=== PATIENT | male | born 1950 | race Caucasian/White ===

== ENCOUNTER 2016-12-07 20:52 | Inpatient (IN) | payer MEDICARE, OTHER ==
[2016-12-07] MEDS ORDERED: MORPHINE SULFATE 4 MG/ML SYRINGE IV STA (21:23)
[2016-12-07] MEDS ORDERED: SODIUM CHLORIDE 0.9% 1,000 ML IV STA (21:23)
--- NOTE | 2016-12-07 21:27 | ED ---
General Adult HPI - General Chief complaint: Abdominal Pain Stated complaint: Back Pain Time Seen by Provider: 12/07/16 21:13 Source: patient, RN notes reviewed Mode of arrival: ambulatory Limitations: no limitations - History of Present Illness Initial comments: Patient is a 66-year-old male presents emergency room for evaluation. Patient states he's been having mid thoracic back pain for the past 3 days. Patient also states he's been having trouble urinating. Patient states the pain is not constant and comes in waves. Patient denies history of kidney stones. Patient denies flank pain. Patient denies blood in the urine. Patient also states that he's been short of breath. Patient denies chest pain. Patient denies history of cardiac issues. Patient does state he smokes about 10 cigarettes per day. Patient denies alcohol use. Patient does state he smokes marijuana every once in a while. Patient denies abdominal pain. Patient denies nausea or vomiting. Patient denies pain or burning while urinating. Patient's caregiver states that patient has not been to a primary care provider in a very long time and thought he should be evaluated due to his symptoms. - Related Data Home Medications Medication Instructions Recorded Confirmed FLUoxetine HCL [PROzac] 40 mg PO DAILY 12/07/16 12/07/16 fluPHENAZine DECANOATE [Prolixin 50 mg IM [id number] 12/07/16 12/07/16 Decanoate] Allergies Allergy/AdvReac Type Severity Reaction Status Date / Time No Known Allergies Allergy Verified 12/07/16 21:11 Review of Systems ROS Statement: Those systems with pertinent positive or pertinent negative responses have been documented in the HPI. ROS Other: All systems not noted in ROS Statement are negative. Past Medical History Past Medical History: Cancer Additional Past Medical History / Comment(s): lactose intolerant, melanoma History of Any Multi-Drug Resistant Organisms: None Reported Past Surgical History: Appendectomy, Cholecystectomy Additional Past Surgical History / Comment(s): skin CA removed Past Psychological History: Schizophrenia Smoking Status: Current every day smoker Past Alcohol Use History: None Reported Past Drug Use History: Marijuana - Past Family History Father Family Medical History: No Reported History General Exam - General Exam Comments Initial Comments: Laying in exam room, no acute distress. Limitations: no limitations General appearance: alert, in no apparent distress Head exam: Present: atraumatic, normocephalic, normal inspection Eye exam: Present: normal appearance ENT exam: Present: normal exam Neck exam: Present: normal inspection Respiratory exam: Present: normal lung sounds bilaterally. Absent: respiratory distress Cardiovascular Exam: Present: regular rate, normal rhythm, normal heart sounds GI/Abdominal exam: Present: soft, normal bowel sounds. Absent: distended, tenderness, guarding, rebound, rigid Extremities exam: Present: normal inspection, full ROM, normal capillary refill. Absent: tenderness Back exam: Present: normal inspection, full ROM. Absent: CVA tenderness (R), CVA tenderness (L), paraspinal tenderness, vertebral tenderness Neurological exam: Present: alert, oriented X3 Psychiatric exam: Present: normal affect Skin exam: Present: warm, dry, intact, normal color. Absent: rash Course Vital Signs 12/07/16 12/08/16 12/08/16 21:01 01:32 02:19 Temperature 97.1 F L 97.8 F Pulse Rate 88 69 72 Respiratory 18 16 20 Rate Blood Pressure 128/72 117/59 143/83 O2 Sat by Pulse 97 93 L 97 Oximetry Medical Decision Making - Medical Decision Making patient is a 66-year-old male presents to the emergency room for evaluation of mid thoracic back pain. Pain is not reproducible on palpation. D-dimer elevated. CTA chest: Large left mediastinal/hilar mass suspicious for malignancy. It markedly narrows the left main pulmonary artery. There is lack of enhancement of the left lobe arteries which may be due to mass effect, but superimposed/concurrent pulmonary embolism these vessels cannot be ruled out. Patient will be admitted for further evaluation of lung mass. Consult with pulmonology. Patient will be started on Lovenox in case patient does in fact have a PE. - Lab Data Result diagrams: 12/07/16 22:25 12/07/16 22:25 Lab Results 12/07/16 12/07/16 12/07/16 Range/Units 22:25 22:25 22:25 WBC 13.2 H (3.8-10.6) k/uL RBC 4.11 L (4.30-5.90) m/uL Hgb 12.3 L (13.0-17.5) gm/dL Hct 36.4 L (39.0-53.0) % MCV 88.5 (80.0-100.0) fL MCH 30.0 (25.0-35.0) pg MCHC 33.9 (31.0-37.0) g/dL RDW 13.3 (11.5-15.5) % Plt Count 414 (150-450) k/uL Neutrophils % 86 % Lymphocytes % 6 % Monocytes % 6 % Eosinophils % 0 % Basophils % 0 % Neutrophils # 11.3 H (1.3-7.7) k/uL Lymphocytes # 0.8 L (1.0-4.8) k/uL Monocytes # 0.8 (0-1.0) k/uL Eosinophils # 0.0 (0-0.7) k/uL Basophils # 0.0 (0-0.2) k/uL PT 10.2 (9.0-12.0) sec INR 1.0 (<1.2) APTT 25.2 (22.0-30.0) sec D-Dimer 0.90 H (<0.60) mg/L FEU Sodium 121 L (137-145) mmol/L Potassium 4.6 (3.5-5.1) mmol/L Chloride 89 L (98-107) mmol/L Carbon Dioxide 23 (22-30) mmol/L Anion Gap 9 mmol/L BUN 12 (9-20) mg/dL Creatinine 0.70 (0.66-1.25) mg/dL Est GFR (MDRD) Af Amer >60 (>60 ml/min/1.73 sqM) Est GFR (MDRD) Non-Af >60 (>60 ml/min/1.73 sqM) Glucose 111 H (74-99) mg/dL Calcium 9.0 (8.4-10.2) mg/dL Magnesium 2.0 (1.6-2.3) mg/dL Total Bilirubin 0.4 (0.2-1.3) mg/dL AST 15 L (17-59) U/L ALT 30 (21-72) U/L Alkaline Phosphatase 92 (38-126) U/L Total Creatine Kinase (55-170) U/L CK-MB (CK-2) (0.0-2.4) ng/mL CK-MB (CK-2) Rel Index Troponin I (0.000-0.034) ng/mL NT-Pro-B Natriuret Pep pg/mL Total Protein 5.9 L (6.3-8.2) g/dL Albumin 3.5 (3.5-5.0) g/dL Amylase 39 (30-110) U/L Lipase 58 (23-300) U/L Urine Color Urine Appearance (Clear) Urine pH (5.0-8.0) Ur Specific [place] (1.001-1.035) Urine Protein (Negative) Urine Glucose (UA) (Negative) Urine Ketones (Negative) Urine Blood (Negative) Urine Nitrite (Negative) Urine Bilirubin (Negative) Urine Urobilinogen (<2.0) mg/dL Ur Leukocyte Esterase (Negative) 12/07/16 12/07/16 12/07/16 Range/Units 22:25 22:25 23:44 WBC (3.8-10.6) k/uL RBC (4.30-5.90) m/uL Hgb (13.0-17.5) gm/dL Hct (39.0-53.0) % MCV (80.0-100.0) fL MCH (25.0-35.0) pg MCHC (31.0-37.0) g/dL RDW (11.5-15.5) % Plt Count (150-450) k/uL Neutrophils % % Lymphocytes % % Monocytes % % Eosinophils % % Basophils % % Neutrophils # (1.3-7.7) k/uL Lymphocytes # (1.0-4.8) k/uL Monocytes # (0-1.0) k/uL Eosinophils # (0-0.7) k/uL Basophils # (0-0.2) k/uL PT (9.0-12.0) sec INR (<1.2) APTT (22.0-30.0) sec D-Dimer (<0.60) mg/L FEU Sodium (137-145) mmol/L Potassium (3.5-5.1) mmol/L Chloride (98-107) mmol/L Carbon Dioxide (22-30) mmol/L Anion Gap mmol/L BUN (9-20) mg/dL Creatinine (0.66-1.25) mg/dL Est GFR (MDRD) Af Amer (>60 ml/min/1.73 sqM) Est GFR (MDRD) Non-Af (>60 ml/min/1.73 sqM) Glucose (74-99) mg/dL Calcium (8.4-10.2) mg/dL Magnesium (1.6-2.3) mg/dL Total Bilirubin (0.2-1.3) mg/dL AST (17-59) U/L ALT (21-72) U/L Alkaline Phosphatase (38-126) U/L Total Creatine Kinase 101 (55-170) U/L CK-MB (CK-2) 1.6 (0.0-2.4) ng/mL CK-MB (CK-2) Rel Index 1.6 Troponin I <0.012 (0.000-0.034) ng/mL NT-Pro-B Natriuret Pep 90 pg/mL Total Protein (6.3-8.2) g/dL Albumin (3.5-5.0) g/dL Amylase (30-110) U/L Lipase (23-300) U/L Urine Color Yellow Urine Appearance Clear (Clear) Urine pH 7.0 (5.0-8.0) Ur Specific [place] 1.050 H (1.001-1.035) Urine Protein Trace H (Negative) Urine Glucose (UA) Negative (Negative) Urine Ketones 2+ H (Negative) Urine Blood Negative (Negative) Urine Nitrite Negative (Negative) Urine Bilirubin Negative (Negative) Urine Urobilinogen <2.0 (<2.0) mg/dL Ur Leukocyte Esterase Negative (Negative) - Radiology Data Radiology results: report reviewed, image reviewed Disposition Clinical Impression: Lung mass Disposition: ADMITTED IP TO THIS [facility] Condition: Stable Decision Date: 12/08/16
--- NOTE | 2016-12-07 22:37 | XR ---
Exam: XR CXR 2 VIEWS History: Chest pain. Comparison: None provided. Technique: Frontal and lateral views. Findings: No focal consolidation or significant effusion. The heart shadow is normal in transverse dimension. There is suggestion of increased prominence/density in the left suprahilar region medially. This is nonspecific. It could be due to an ectatic contour of the aorta. Underlying lymphadenopathy is not entirely ruled out. Comparison with prior examination, if available, would be useful. Otherwise, may consider contrast enhanced follow-up CT chest. Impression: Questionable prominence of the left suprahilar region as discussed above.
[2016-12-07 22:40] LABS: Basophils % (A) 0 %; CH 30.9; Eosinophils % (A) 0 %; HCT 36.4 % (39.0-53.0); HDW 2.19; HGB 12.3 gm/dL (13.0-17.5); Luc # (Auto) 0.19; Luc % (Auto) 1; Lymphocytes # (A) 0.8 k/uL (1.0-4.8); Lymphocytes % (A) 6 %; MCHC 33.9 g/dL (31.0-37.0); MCV 88.5 fL (80.0-100.0); Mean Platelet Volume 6.6; Monocytes # (A) 0.8 k/uL (0-1.0); Monocytes % (A) 6 %; Neutrophils # (A) 11.3 k/uL (1.3-7.7); Neutrophils % (A) 86 %; RBC 4.11 m/uL (4.30-5.90); RDW 13.3 % (11.5-15.5); WBC 13.2 k/uL (3.8-10.6); WBC (Perox) 13.54
[2016-12-07 22:47] LABS: ALT 30 U/L (21-72); AST 15 U/L (17-59); Alkaline Phosphatase 92 U/L (38-126); Amylase 39 U/L (30-110); Anion Gap 9 mmol/L; Blood Urea Nitrogen 12 mg/dL (9-20); Carbon Dioxide 23 mmol/L (22-30); Chloride 89 mmol/L (98-107); Glucose 111 mg/dL (74-99); Non-African American GFR(MDRD) >60 (>60 ml/min/1.73 sqM); Potassium 4.6 mmol/L (3.5-5.1); Sodium 121 mmol/L (137-145); Total Bilirubin 0.4 mg/dL (0.2-1.3); Total Protein 5.9 g/dL (6.3-8.2)
[2016-12-07 22:53] LABS: Partial Thromboplastin Time 25.2 sec (22.0-30.0)
[2016-12-07 22:55] LABS: Prothrombin Time 10.2 sec (9.0-12.0)
[2016-12-07 22:56] LABS: Creatine Kinase 101 U/L (55-170)
[2016-12-07] MEDS ORDERED: RX INFO: IV CONTRAST WAS GIVEN 1 EACH MISC MISCELLANE PRN (23:02)
[2016-12-07] MEDS ORDERED: HYDROmorphone 1 MG/ML 1 ML SYRINGE IVP STA (23:06)
[2016-12-07 23:09] LABS: Creatine Kinase MB 1.6 ng/mL (0.0-2.4); Troponin I <0.012 ng/mL (0.000-0.034)
[2016-12-08 00:03] LABS: Appearance,Urine Clear (Clear); Bilirubin,Urine Negative (Negative); Glucose,Urine (UA) Negative (Negative); Ketones,Urine 2+ (Negative); Leukocyte Esterase,Urine Negative (Negative); Nitrite,Urine Negative (Negative); Protein,Urine Trace (Negative); UA Billing (MACRO vs. MICRO) CHEM; Urobilinogen,Urine <2.0 mg/dL (<2.0)
[2016-12-08] MEDS ORDERED: HYDROmorphone 1 MG/ML 1 ML SYRINGE IVP STA (00:58)
[2016-12-08] MEDS ORDERED: DIAZEPAM 5 MG/ML 2 ML SYRINGE IVP STA (00:59)
[2016-12-08] MEDS ORDERED: SODIUM CHLORIDE 0.9% 1,000 ML IV ONE (00:59)
--- NOTE | 2016-12-08 01:11 | CT ---
Exam: CTA CHEST With Contrast History: Chest pain. Back pain. History of melanoma. Rule out PE. Comparison: None provided. Technique: Continuous axial images of the chest were obtained per CTA protocol. Coronal and sagittal reformatting was provided. MIPs were submitted. Findings: There is a mediastinal mass in the left hilar region. Exact measurements are difficult given the irregular contour. It is approximately 5.1 cm x 8.0 cm x 7.2 cm. This mass engulfs and markedly narrows the left main pulmonary artery. While there is adequate enhancement/opacification of the left lower lobe vasculature, there is lack of opacification of the vast majority of the left upper lobe vessels. This may be secondary to the substantial mass effect, but superimposed/concurrent pulmonary emboli cannot be ruled out. There is right hilar lymphadenopathy. There are irregular parenchymal opacities adjacent to the superior border of this left hilar mass, likely representing satellite lesions. Additional groundglass opacities are seen at the periphery of the left upper lobe which could represent malignancy or pneumonia. Potentially, could be foci of scarring. Severe emphysematous changes are seen, particularly in the upper lobes. No pleural effusion. No acute aortic abnormality. There is prominent thickening of the left adrenal gland, incompletely imaged. This is suspicious for metastatic disease. There is approximate 20% loss of height of T6 anteriorly. A curvilinear sclerosis is seen extending from the anterior to the posterior margin of the vertebral body. This is suspicious for a compression fracture of indeterminate age. If acuity is of high concern, consider MRI. Impression: 1. Large left mediastinal/hilar mass suspicious for malignancy (discussed in detail above, including likely metastatic disease). It markedly narrows the left main pulmonary artery. There is lack of enhancement of the left upper lobe arteries which may be due to mass effect, but superimposed/concurrent pulmonary emboli in these vessels cannot be ruled out. 2. Age-indeterminate compression fracture of T6. If acuity is of high concern, consider MRI. DLP = 375.00 mGycm One or more of the following dose reduction techniques were used: automated exposure control, adjustment of the mA and/or kV according to patient size, use of iterative reconstruction technique. [employer] 12/08/16 01:16 Call Doctor Regarding Other, called ROMAINE Casillas on 12/08 01: 15 (-04:00)
[2016-12-08] MEDS ORDERED: NALOXONE 0.4 MG/ML 1 ML VIAL IV PRN (01:25)
[2016-12-08] MEDS ORDERED: ONDANSETRON 4 MG/2 ML VIAL IVP PRN (01:25)
[2016-12-08] MEDS: SODIUM CHLORIDE 0.9% 1,000 ML IV SCH ×2 (02:15→15:06)
[2016-12-08] MEDS: HYDROmorphone 1 MG/ML 1 ML SYRINGE IV PRN ×7 (04:01→23:32)
[2016-12-08] MEDS: NICOTINE 21MG/24HR PATCH TRANSDERM SCH (07:47)
[2016-12-08] MEDS: ENOXAPARIN 80 MG/0.8 ML SYRINGE SQ SCH ×2 (07:47→20:10)
[2016-12-08] MEDS: FLUoxetine HCL 20 MG CAP PO SCH (10:18)
--- NOTE | 2016-12-08 10:57 | P.CNPUL ---
History of Present Illness Consult date: 12/08/16 Requesting physician: Shay Tolbert Reason for consult: lung mass Chief complaint: Shortness of Breath and back pain History of present illness: This is a 66-year-old male patient being seen examined and evaluated today on the fifth floor. This patient had been having mid thoracic back pain for the last 3-4 days as well as difficulty urinating. Patient underwent a chest x-ray in the emergency room which showed questionable prominence of the left suprahilar region medially and a CT of the chest was recommended. The patient did undergo a CT a of the chest with contrast which revealed an irregular mass measuring approximately 5.1 cm 8.0 cm 7.2 cm which is highly suspicious for malignancy, markedly narrowing of the left main pulmonary artery, right mediastinal lymphadenopathy, prominent thickening of the left adrenal gland which was suspicious for metastatic disease, compression fracture of T6, superimposed/concurrent pulmonary emboli in the vessels cannot be excluded. Patient did have elevated d-dimer of 0.90 and was placed on Lovenox. The patient is a current every day smoker and states he's been smoking since he was a toddler at the age of 24 years old, states he smokes approximately 2 packs per day. Upon examination the patient's resting up in bed on room air, he states he does have occasional shortness of breath with cough and congestion. Patient states that he takes a deep breath he has excruciating pain in the middle of his back. Patient unable to have an adequate cough due to pain. Of note the patient has had melanoma. Review of Systems 14 point review of systems was completed and is negative unless noted above in the HPI. Past Medical History Past Medical History: Cancer Additional Past Medical History / Comment(s): lactose intolerant, melanoma History of Any Multi-Drug Resistant Organisms: None Reported Past Surgical History: Appendectomy, Cholecystectomy Additional Past Surgical History / Comment(s): skin CA removed Past Psychological History: Schizophrenia Smoking Status: Current every day smoker Past Alcohol Use History: None Reported Past Drug Use History: Marijuana - Past Family History Father Family Medical History: No Reported History Medications and Allergies Home Medications Medication Instructions Recorded Confirmed Type FLUoxetine HCL [PROzac] 40 mg PO DAILY 12/07/16 12/07/16 History fluPHENAZine DECANOATE [Prolixin 50 mg IM [id number] 12/07/16 12/07/16 History Decanoate] Allergies Allergy/AdvReac Type Severity Reaction Status Date / Time No Known Allergies Allergy Verified 12/07/16 21:11 Physical Exam Vitals: Vital Signs Temp Pulse Pulse Resp BP BP Pulse Ox 12/08/16 07:00 97.7 F 87 16 161/83 91 L 12/08/16 02:35 97.5 F L 78 16 150/67 92 L 12/08/16 02:19 72 20 143/83 97 12/08/16 01:32 97.8 F 69 16 117/59 93 L 12/08/16 01:25 92 L 12/07/16 21:01 97.1 F L 88 18 128/72 97 Intake and Output 12/07/16 12/08/16 12/08/16 22:59 06:59 14:59 Intake Total 150 Balance 150 Intake: IV 150 Sodium Chloride 0.9% 1, 150 000 ml @ 75 mls/hr IV . [id number] [facility] Rx#:[id number] Other: Weight 72.575 kg GENERAL EXAM: Alert, really uncomfortable due to back pain. HEAD: Normocephalic. EYES: Normal reaction of pupils, equal size. NOSE: Clear with pink turbinates. THROAT: No erythema or exudates. NECK: No masses, no JVD. CHEST: No chest wall deformity. BACK: Normal inspection, point tenderness noted to mid thoracic spine, any type of movement increases the patient's pain LUNGS: Coarse throughout, expiratory wheezing noted. bases diminished. CVS: S1 and S2 normal with no audible mumurs, regular rhythm. ABDOMEN: No hepatosplenomegaly, normal bowel sounds, no guarding or rigidity. EXTREMITIES: No edema noted, pedal pulses palpable. CENTRAL NERVOUS SYSTEM: No focal deficits, tone is normal in all 4 extremities. Results - Laboratory Findings CBC and BMP: 12/07/16 22:25 12/07/16 22:25 PT/INR, D-dimer PT 10.2 sec (9.0-12.0) 12/07/16 22:25 INR 1.0 (<1.2) 12/07/16 22:25 D-Dimer 0.90 mg/L FEU (<0.60) H 12/07/16 22:25 Abnormal lab findings: Abnormal Labs 12/07/16 12/07/16 12/07/16 22:25 22:25 22:25 WBC 13.2 H RBC 4.11 L Hgb 12.3 L Hct 36.4 L Neutrophils # 11.3 H Lymphocytes # 0.8 L D-Dimer 0.90 H Sodium 121 L Chloride 89 L Glucose 111 H AST 15 L Total Protein 5.9 L Ur Specific [place] Urine Protein Urine Ketones 12/07/16 23:44 WBC RBC Hgb Hct Neutrophils # Lymphocytes # D-Dimer Sodium Chloride Glucose AST Total Protein Ur Specific [place] 1.050 H Urine Protein Trace H Urine Ketones 2+ H - Diagnostic Findings Chest x-ray: report reviewed, image reviewed CT scan - chest: report reviewed, image reviewed Assessment and Plan Plan: Assessment Large left sided lung mass, PE cannot be ruled out at this time however it is felt less likely 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 This procedure has been discussed in length with the patient in regards to risk and benefits. All questions have been answered. Patient would like to go forth with the procedure. We will put the patient nothing by mouth after midnight and obtain consent. Medications have been reviewed and will be continued as ordered. Continue with pulmonary hygiene, coughing and deep breathing exercises , and supportive care. Supplemental oxygen to maintain oxygen saturations of 92 % or better. We will add nebulizer treatments to his current regime. GI and DVT prophylaxis. Patient should also have a PET scan done in the outpatient setting. Continue with consult as ordered and appreciate recommendations. We will continue to monitor labs/results and adjust treatment as necessary. Further recommendations pending. I performed an examination of the patient and discussed their management with the nurse practitioner. I have reviewed the nurse practitioner's note and agree with the documented findings and plan of care.
--- NOTE | 2016-12-08 15:42 | P.CONS ---
History of Present Illness - Reason for Consult Consult date: 12/08/16 New chest mass/Back pain Requesting physician: Prasanna García - Chief Complaint I have back pain - History of Present Illness Mr. Galvez is a 66-year-old male with a 150 pk/yr smoking history and a 4 month complaint of upper thoracic back pain. He describes worsening pain over this area for 3-4 days as well as difficulty urinating. Chest x-ray in the emergency room identified prominence of the left suprahilar region medially and a CT of the chest was recommended. CTA of the chest with contrast revealed an irregular mass measuring 5.1 cm 8.0 cm 7.2 cm highly suspicious for malignancy , markedly narrowing of the left main pulmonary artery, right mediastinal lymphadenopathy, prominent thickening of the left adrenal gland, and compression fracture of T6. Mr. Galvez denies weight loss, hemoptysis, worsening shortness of breathe, headaches, vision changes, or balance problems. He lives in a room above the garage adjacent to his negeorge and her . Review of Systems Constitutional: Reports fatigue, Reports poor appetite Eyes: denies blurred vision, denies pain Respiratory: Reports cough, Reports pain on inspiration Gastrointestinal: Denies abdominal pain, Denies diarrhea, Denies nausea, Denies vomiting Neurological: Denies numbness, Denies weakness Psychiatric: Reports depression Past Medical History Past Medical History: Cancer Additional Past Medical History / Comment(s): lactose intolerant, melanoma History of Any Multi-Drug Resistant Organisms: None Reported Past Surgical History: Appendectomy, Cholecystectomy Additional Past Surgical History / Comment(s): skin CA removed Past Psychological History: Schizophrenia Smoking Status: Current every day smoker Past Alcohol Use History: None Reported Past Drug Use History: Marijuana - Past Family History Father Family Medical History: No Reported History Medications and Allergies Home Medications Medication Instructions Recorded Confirmed Type FLUoxetine HCL [PROzac] 40 mg PO DAILY 12/07/16 12/07/16 History fluPHENAZine DECANOATE [Prolixin 50 mg IM [id number] 12/07/16 12/07/16 History Decanoate] Allergies Allergy/AdvReac Type Severity Reaction Status Date / Time No Known Allergies Allergy Verified 12/07/16 21:11 Physical Exam Vitals: Vital Signs Temp Pulse Pulse Resp BP BP Pulse Ox 12/08/16 15:00 97.5 F L 68 16 115/58 91 L 12/08/16 08:00 16 12/08/16 07:00 97.7 F 87 16 161/83 91 L 12/08/16 02:35 97.5 F L 78 16 150/67 92 L 12/08/16 02:19 72 20 143/83 97 12/08/16 01:32 97.8 F 69 16 117/59 93 L 12/08/16 01:25 92 L 12/07/16 21:01 97.1 F L 88 18 128/72 97 Intake and Output 12/08/16 12/08/16 12/08/16 06:59 14:59 22:59 Intake Total 150 500 Balance 150 500 Intake: IV 150 Sodium Chloride 0.9% 1, 150 000 ml @ 75 mls/hr IV . [id number] [facility] Rx#:[id number] Oral 500 Other: Voiding Method Toilet # Voids 1 - Constitutional General appearance: average body habitus, cooperative, disheveled - EENT Eyes: EOMI - Neck Neck: normal ROM - Respiratory Respiratory: bilateral: wheezing, prolonged expiration - Cardiovascular Rhythm: regular - Neurologic Neurologic: CNII-XII intact Results CBC & Chem 7: 12/07/16 22:25 12/07/16 22:25 Labs: Abnormal Lab Results - Last 24 Hours (Table) 12/07/16 12/07/16 12/07/16 Range/Units 22:25 22:25 22:25 WBC 13.2 H (3.8-10.6) k/uL RBC 4.11 L (4.30-5.90) m/uL Hgb 12.3 L (13.0-17.5) gm/dL Hct 36.4 L (39.0-53.0) % Neutrophils # 11.3 H (1.3-7.7) k/uL Lymphocytes # 0.8 L (1.0-4.8) k/uL D-Dimer 0.90 H (<0.60) mg/L FEU Sodium 121 L (137-145) mmol/L Chloride 89 L (98-107) mmol/L Glucose 111 H (74-99) mg/dL AST 15 L (17-59) U/L Total Protein 5.9 L (6.3-8.2) g/dL Ur Specific [place] (1.001-1.035) Urine Protein (Negative) Urine Ketones (Negative) 12/07/16 Range/Units 23:44 WBC (3.8-10.6) k/uL RBC (4.30-5.90) m/uL Hgb (13.0-17.5) gm/dL Hct (39.0-53.0) % Neutrophils # (1.3-7.7) k/uL Lymphocytes # (1.0-4.8) k/uL D-Dimer (<0.60) mg/L FEU Sodium (137-145) mmol/L Chloride (98-107) mmol/L Glucose (74-99) mg/dL AST (17-59) U/L Total Protein (6.3-8.2) g/dL Ur Specific [place] 1.050 H (1.001-1.035) Urine Protein Trace H (Negative) Urine Ketones 2+ H (Negative) CT scan - chest: image reviewed (Large central mass concerning for SCLC. Associated T6 compression fracture with no soft tissue component.) Assessment and Plan Plan: 66 year old male with an extensive smoking history and newly visualized large central mass and compression fracture of the T6 vertebral body. Patient scheduled for bronchoscopy and biopsy under the care of Dr. García 2016. We will await path. Imaging features are concerning for small cell lung cancer. It is difficult to assess at this time if the T6 compression fracture is associated with this new chest abnormality. After discharge Mr. Galvez will require MRI of the brain and PET/CT if pathology is diagnostic for malignancy. I have scheduled an outpatient appointment with Mr. Galvez on 12/13/16 @[facility]. [facility] [phone]
--- NOTE | 2016-12-08 16:03 | P.HPIM ---
History of Present Illness H&P Date: 12/08/16 Chief Complaint: Short of breath History of present complaint: This is a [address] Marie. Chronic stable medical conditions includes lactose intolerance, history of melanoma, schizophrenia. Patient presents with worsening 2 weeks history of lower back pain quite severe becoming more uncomfortable. Also patient got shortness of breath, cough, wheezing clear white sputum.. Patient is smoker. Appetite is gone down he is not sure if he lost weight. Computed tomography scan of the ER showed a lung mass with some compression of the pulmonary artery GEN.: Tired weight loss EYES: None HEENT: None NECK: None RESPIRATORY: As above CARDIOVASCULAR: None GASTROINTESTINAL: None GENITOURINARY: None MUSCULOSKELETAL: As above LYMPHATICS: None HEMATOLOGICAL: None PSYCHIATRY: None NEUROLOGICAL: No trouble with walking urine or bowel Past medical history: Lactose intolerance, melanoma, schizophrenia Past surgical history: Appendectomy, cholecystectomy, skin cancer Social history: This patient himself in an apartment, does marijuana occasionally, smokes about 2 packs a day Family history: Reviewed, noncontributory to presentation Home medications reviewed in the computer Physical examination: VITAL SIGNS: 97.5, 78, 16, 150/67, 91 % room air GENERAL: Average built, sitting up, uncomfortable. EYES: Pupils equal. Conjunctiva normal. HEENT: External appearance of nose and ears normal, oral cavity grossly normal. NECK: JVD not raised; masses not palpable. HEART: First and second heart sounds are normal; no edema. LUNGS: Respiratory rate increased, diminished breath sounds prolonged expiration , wheezing. ABDOMEN: Soft, nontender, liver spleen not palpable, no masses palpable. LYMPHATICS: No lymph nodes palpable in the axilla and neck. PSYCH: [Alert and oriented x3; mood and affect anxious appearing l. NEUROLOGICAL: Cranial nerves grossly intact; no facial asymmetry, power and sensation grossly intact. Investigations: White count 3.2, hemoglobin 12.3, sodium 121, potassium 4.6, CT chest angiogram: Shows left hilar mass groundglass opacities masses severe emphysematous changes questionable thickening of the left adrenal gland. T6 anteriorly compression fracture Assessment: -Extensive lung mass with some compression of the left pulmonary artery strongly suspicious of malignancy in a smoker -Severe emphysema in a current smoker -Chronic nicotine dependence patient active symptoms smoker -Severe hyponatremia suspect SIADH with lung cancer -Acute T6 compression fracture suspect metastatic disease -Suspect metastatic disease to the left adrenal gland -Chronic lactose intolerance -Schizophrenia Plan: Pulmonary was consulted. The plan to do a bronchoscopy with biopsy. Patient is put on nebulized bronchitis steroids. We'll begin a nicotine patch. We will order a heating pad. Home medications are resumed. We'll also consult oncology. Care was discussed with the patient Past Medical History Additional Past Medical History / Comment(s): lactose intolerant, melanoma History of Any Multi-Drug Resistant Organisms: None Reported Past Surgical History: Appendectomy, Cholecystectomy Additional Past Surgical History / Comment(s): skin CA removed Past Psychological History: Schizophrenia Smoking Status: Current every day smoker Past Alcohol Use History: None Reported Past Drug Use History: Marijuana - Past Family History Father Family Medical History: No Reported History Medications and Allergies Home Medications Medication Instructions Recorded Confirmed Type FLUoxetine HCL [PROzac] 40 mg PO DAILY 12/07/16 12/07/16 History fluPHENAZine DECANOATE [Prolixin 50 mg IM [id number] 12/07/16 12/07/16 History Decanoate] Allergies Allergy/AdvReac Type Severity Reaction Status Date / Time No Known Allergies Allergy Verified 12/07/16 21:11 Physical Exam Vitals: Results CBC & Chem 7: 12/07/16 22:25 12/07/16 22:25
[2016-12-08] MEDS: IPRATROPIUM-ALBUTEROL 3 ML NEB INHALATION SCH ×2 (17:00→21:22)
[2016-12-08] MEDS ORDERED: LIDOCAINE 1% 20 ML VIAL (10MG/ML) FOR IV START INTRADERMA PRN (21:18)
[2016-12-08] MEDS: BUDESONIDE 0.5 MG/2 ML NEBU INHALATION SCH (21:22)
[2016-12-08] MEDS: LACTATED RINGERS 1,000 ML IV SCH (23:19)
[2016-12-09] MEDS: HYDROmorphone 1 MG/ML 1 ML SYRINGE IV PRN ×4 (04:18→16:34)
[2016-12-09] MEDS: SODIUM CHLORIDE 0.9% 1,000 ML IV SCH ×2 (07:36→16:34)
[2016-12-09] MEDS: BUDESONIDE 0.5 MG/2 ML NEBU INHALATION SCH ×2 (08:16→19:30)
[2016-12-09] MEDS: IPRATROPIUM-ALBUTEROL 3 ML NEB INHALATION SCH ×3 (08:16→19:30)
[2016-12-09] MEDS ORDERED: GLYCOPYRROLATE 0.2 MG/ML 2 ML VIAL ONE (08:32)
[2016-12-09] MEDS ORDERED: MIDAZOLAM 2 MG/2 ML VIAL ONE (08:32)
[2016-12-09] MEDS ORDERED: LIDOCAINE 1% INJ 10MG/ML (20 ML MDV) ONE (08:32)
[2016-12-09] MEDS ORDERED: PROPOFOL 10 MG/ML 20 ML VIAL IV ONE (08:32)
[2016-12-09] MEDS ORDERED: fentaNYL (PF) 50 MCG/ML 2 ML AMP ONE (08:32)
[2016-12-09] MEDS ORDERED: IV FLUID CONTINUATION 1,000 ML IV ONE (08:32)
[2016-12-09 08:38] LABS: Basophils % (A) 0 %; CH 30.4; CHCM 34.1; Eosinophils % (A) 0 %; HCT 36.1 % (39.0-53.0); HDW 2.26; HGB 11.9 gm/dL (13.0-17.5); Luc # (Auto) 0.22; Luc % (Auto) 2; Lymphocytes # (A) 1.3 k/uL (1.0-4.8); Lymphocytes % (A) 13 %; MCH 29.5 pg (25.0-35.0); MCHC 32.9 g/dL (31.0-37.0); MCV 89.8 fL (80.0-100.0); Mean Platelet Volume 6.5; Monocytes # (A) 0.9 k/uL (0-1.0); Monocytes % (A) 9 %; Neutrophils # (A) 7.8 k/uL (1.3-7.7); Neutrophils % (A) 76 %; RBC 4.02 m/uL (4.30-5.90); RDW 13.2 % (11.5-15.5); WBC 10.2 k/uL (3.8-10.6); WBC (Perox) 10.96
[2016-12-09 08:47] LABS: Anion Gap 7 mmol/L; Blood Urea Nitrogen 7 mg/dL (9-20); Calcium 8.5 mg/dL (8.4-10.2); Carbon Dioxide 25 mmol/L (22-30); Chloride 94 mmol/L (98-107); Glucose 90 mg/dL (74-99); Non-African American GFR(MDRD) >60 (>60 ml/min/1.73 sqM); Potassium 4.4 mmol/L (3.5-5.1); Sodium 126 mmol/L (137-145)
[2016-12-09 08:56] LABS: Prothrombin Time 10.1 sec (9.0-12.0)
[2016-12-09] MEDS ORDERED: LIDOCAINE 2% INJ 20 MG/ML INTRATRACH ONE (09:00)
[2016-12-09] MEDS: FLUoxetine HCL 20 MG CAP PO SCH (09:44)
[2016-12-09] MEDS: NICOTINE 21MG/24HR PATCH TRANSDERM SCH (09:44)
--- NOTE | 2016-12-09 09:46 | XR ---
EXAMINATION TYPE: XR chest 1V portable DATE OF EXAM: 12/09/2016 COMPARISON: 12/07/2016 INDICATION: Left lower lobe biopsy. TECHNIQUE: Single frontal view of the chest is obtained. FINDINGS: The heart size is normal. The pulmonary vasculature is normal. A right basilar infiltrate is developing. Correlate for atelectasis or pneumonia. There is a history of left lower lobe biopsy. No pneumothorax is evident. IMPRESSION: 1. Right lower lobe atelectasis. 2. No left lung pneumothorax post biopsy.
--- NOTE | 2016-12-09 10:25 | FL ---
EXAMINATION TYPE: FL bronchoscopy DATE OF EXAM: 12/09/2016 COMPARISON: NONE HISTORY: Bronchoscopy, abnormal chest CT Fluoroscopy support supplied to the referring clinician. See dictated report from pulmonary, 1 minut e 33 seconds fluoroscopy time supplied, no intraoperative C-arm image submitted
--- NOTE | 2016-12-09 13:57 | P.PN ---
Progress Note - Text This is a 66-year-old male patient being seen examined and evaluated today on the fifth floor. This patient had been having mid thoracic back pain for the last 3-4 days as well as difficulty urinating. Patient underwent a chest x-ray in the emergency room which showed questionable prominence of the left suprahilar region medially and a CT of the chest was recommended. The patient did undergo a CT a of the chest with contrast which revealed an irregular mass measuring approximately 5.1 cm 8.0 cm 7.2 cm which is highly suspicious for malignancy, markedly narrowing of the left main pulmonary artery, right mediastinal lymphadenopathy, prominent thickening of the left adrenal gland which was suspicious for metastatic disease, compression fracture of T6, superimposed/concurrent pulmonary emboli in the vessels cannot be excluded. Patient did have elevated d-dimer of 0.90 and was placed on Lovenox. The patient is a current every day smoker and states he's been smoking since he was a toddler at the age of 24 years old, 14 point review of systems was completed and is negative unless noted above in the HPI. Past Medical History Past Medical History: Cancer Additional Past Medical History / Comment(s): lactose intolerant, melanoma History of Any Multi-Drug Resistant Organisms: None Reported Past Surgical History: Appendectomy, Cholecystectomy Additional Past Surgical History / Comment(s): skin CA removed Past Psychological History: Schizophrenia Smoking Status: Current every day smoker Past Alcohol Use History: None Reported Past Drug Use History: Marijuana - Past Family History Father Family Medical History: No Reported History Medications and Allergies Home Medications Medication Instructions Recorded Confirmed Type FLUoxetine HCL [PROzac] 40 mg PO DAILY 12/07/16 12/07/16 History fluPHENAZine DECANOATE [Prolixin 50 mg IM [id number] 12/07/16 12/07/16 History Decanoate] Allergies Allergy/AdvReac Type Severity Reaction Status Date / Time No Known Allergies Allergy Verified 12/07/16 21:11 Physical Exam Vitals: reviewed Vital Signs Temp Pulse Pulse Resp BP BP Pulse Ox 12/08/16 07:00 97.7 F 87 16 161/83 91 L 12/08/16 02:35 97.5 F L 78 16 150/67 92 L 12/08/16 02:19 72 20 143/83 97 12/08/16 01:32 97.8 F 69 16 117/59 93 L 12/08/16 01:25 92 L 12/07/16 21:01 97.1 F L 88 18 128/72 97 Intake and Output 12/07/16 12/08/16 12/08/16 22:59 06:59 14:59 Intake Total 150 Balance 150 Intake: IV 150 Sodium Chloride 0.9% 1, 150 000 ml @ 75 mls/hr IV . [id number] [facility] Rx#:[id number] Other: Weight 72.575 kg GENERAL EXAM: Alert, really uncomfortable due to back pain. HEAD: Normocephalic. EYES: Normal reaction of pupils, equal size. NOSE: Clear with pink turbinates. THROAT: No erythema or exudates. NECK: No masses, no JVD. CHEST: No chest wall deformity. BACK: Normal inspection, point tenderness noted to mid thoracic spine, any type of movement increases the patient's pain LUNGS: Coarse throughout, expiratory wheezing noted. bases diminished. CVS: S1 and S2 normal with no audible mumurs, regular rhythm. ABDOMEN: No hepatosplenomegaly, normal bowel sounds, no guarding or rigidity. EXTREMITIES: No edema noted, pedal pulses palpable. CENTRAL NERVOUS SYSTEM: No focal deficits, tone is normal in all 4 extremities. Results - Laboratory Findings CBC and BMP: 12/07/16 22:25 12/07/16 22:25 PT/INR, D-dimer PT 10.2 sec (9.0-12.0) 12/07/16 22:25 INR 1.0 (<1.2) 12/07/16 22:25 D-Dimer 0.90 mg/L FEU (<0.60) H 12/07/16 22:25 Abnormal lab findings: Abnormal Labs 12/07/16 12/07/16 12/07/16 22:25 22:25 22:25 WBC 13.2 H RBC 4.11 L Hgb 12.3 L Hct 36.4 L Neutrophils # 11.3 H Lymphocytes # 0.8 L D-Dimer 0.90 H Sodium 121 L Chloride 89 L Glucose 111 H AST 15 L Total Protein 5.9 L Ur Specific [place] Urine Protein Urine Ketones 12/07/16 23:44 WBC RBC Hgb Hct Neutrophils # Lymphocytes # D-Dimer Sodium Chloride Glucose AST Total Protein Ur Specific [place] 1.050 H Urine Protein Trace H Urine Ketones 2+ H - Diagnostic Findings Chest x-ray: report reviewed, image reviewed CT scan - chest: report reviewed, image reviewed Assessment and Plan Plan: Assessment Large left sided lung mass, PE cannot be ruled out at this time however it is felt less likely Acute exacerbation of COPD with extensive bullous lung disease Right mediastinal lymphadenopathy on CTA Compression fracture to T6 Prominence of the left adrenal gland, suspect mets History of melanoma Nicotine dependence Plan Patient should have a bronchoscopy under fluoroscopy with biopsies later on today This procedure has been discussed in length with the patient in regards to risk and benefits. All questions have been answered. Patient would like to go forth with the procedure. We will put the patient nothing by mouth after midnight and obtain consent. Medications have been reviewed and will be continued as ordered. Continue with pulmonary hygiene, coughing and deep breathing exercises, and supportive care. Supplemental oxygen to maintain oxygen saturations of 92% or better. We will add nebulizer treatments to his current regime. GI and DVT prophylaxis. Patient should also have a PET scan done in the outpatient setting. Continue with consult as ordered and appreciate recommendations. We will continue to monitor labs/results and adjust treatment as necessary. Further recommendations pending.
--- NOTE | 2016-12-09 14:03 | P.PCN ---
Date of Procedure: 12/09/16 Preoperative Diagnosis: left sided lung mass Postoperative Diagnosis: as above Procedure(s) Performed: bronchoscopy, bronchial biopsy, BAL, TBBX under fluroscopy Implants: Anesthesia: local Surgeon: Prasanna García Estimated Blood Loss (ml): 0 Condition: stable Disposition: floor Indications for Procedure: as above Operative Findings: narrowed left upper lobe bronchus Description of Procedure: FOB passed via right nares, vocal cords are normal , right side was yaw, left sided mucosal thickening noted galina JOCE bronchuswith near occlution bal, bx, tbbx performed tolerated well
[2016-12-09] MEDS ORDERED: RX INFO: IV CONTRAST WAS GIVEN 1 EACH MISC MISCELLANE PRN (16:37)
[2016-12-09] MEDS ORDERED: MAGNESIUM HYDROXIDE 2,400 MG/10 ML CUP PO PRN (16:43)
--- NOTE | 2016-12-09 17:06 | P.CONS ---
History of Present Illness - Reason for Consult Consult date: 12/09/16 lung mass Requesting physician: Valerie Whaley - Chief Complaint back pain - History of Present Illness Mr. Galvez is a very pleasant 66-year-old male with a history of schizophrenia who has guardian as well as his niece who provides him care in the home. Patient has not been to see a doctor in quite some years, he is not current on age-related cancer screenings per his request not to have certain testings. Patient was experiencing severe mid back pain and that is why he was brought to the emergency department. Patient had a CTA of the chest revealing a left hilar mass measuring 5.1 x 8 x 7.2 cm, compression of the left main pulmonary artery was noted as well as some right hilar adenopathy, could not rule out PE so, patient was started on Lovenox, pt is status post bronchoscopy biopsy, transbronchial biopsy with Dr. García, pathology pending. Per the patient and caregiver patient has been in his usual state of health with no acute changes noted in either his behaviors, appetite or weight. Patient denies sweats, cough, shortness of breath, abdominal pain, or problems swallowing, c/o lack of appetite and some mild nausea, he has not had a bowel movement in several days, he is ambulatory, no incontinence. Review of Systems All systems: negative Constitutional: Reports as per HPI Past Medical History Past Medical History: Cancer Additional Past Medical History / Comment(s): lactose intolerant, melanoma removal right chest and left shoulder 2010 History of Any Multi-Drug Resistant Organisms: None Reported Past Surgical History: Appendectomy, Cholecystectomy Additional Past Surgical History / Comment(s): skin CA removed Past Psychological History: Schizophrenia Smoking Status: Current every day smoker Past Alcohol Use History: None Reported Past Drug Use History: Marijuana - Past Family History Father Family Medical History: No Reported History Medications and Allergies Home Medications Medication Instructions Recorded Confirmed Type FLUoxetine HCL [PROzac] 40 mg PO DAILY 12/07/16 12/07/16 History fluPHENAZine DECANOATE [Prolixin 50 mg IM [id number] 12/07/16 12/07/16 History Decanoate] Allergies Allergy/AdvReac Type Severity Reaction Status Date / Time No Known Allergies Allergy Verified 12/07/16 21:11 Physical Exam Vitals: Vital Signs Temp Pulse Resp BP Pulse Ox 12/09/16 15:00 98 F 81 20 147/65 92 L 12/09/16 07:50 18 12/09/16 07:00 98 F 77 20 156/82 94 L 12/08/16 20:45 97.9 F 81 16 120/57 94 L Intake and Output 12/09/16 12/09/16 12/09/16 06:59 14:59 22:59 Intake Total 600 650 Balance 600 650 Intake: IV 600 650 Sodium Chloride 0.9% 1, 600 600 000 ml @ 75 mls/hr IV . [id number] [facility] Rx#:[id number] Other: Voiding Method Toilet Toilet Toilet - Constitutional General appearance: cooperative, no acute distress, thin - EENT Eyes: anicteric sclerae, PERRLA, poor dentition, normal appearance ENT: hearing grossly normal, normal oropharynx - Neck Neck: no lymphadenopathy - Respiratory Respiratory: bilateral: wheezing (expiratory ) - Cardiovascular Rhythm: regular Heart sounds: normal: S1, S2 Abnormal Heart Sounds: no systolic murmur, no diastolic murmur, no rub, no S3 Gallop, no S4 Gallop, no click, no other leg Peripheral Edema: bilateral: None - Gastrointestinal General gastrointestinal: no absent bowel sounds, no decreased bowel sounds, no distended, no hepatomegaly, no hyperactive bowel sounds, normal bowel sounds, no organomegaly, no rigid, no scaphoid, soft, no splenomegaly, no tenderness, no umbilical hernia, no ventral hernia - Integumentary Integumentary: normal, pale - Neurologic Neurologic: CNII-XII intact - Musculoskeletal Musculoskeletal: strength equal bilaterally - Psychiatric niece is at bedside Psychiatric: A&O x's 3, appropriate affect Results CBC & Chem 7: 12/09/16 07:44 12/09/16 07:44 Labs: Abnormal Lab Results - Last 24 Hours (Table) 12/09/16 12/09/16 Range/Units 07:44 07:44 RBC 4.02 L (4.30-5.90) m/uL Hgb 11.9 L (13.0-17.5) gm/dL Hct 36.1 L (39.0-53.0) % Neutrophils # 7.8 H (1.3-7.7) k/uL Sodium 126 L (137-145) mmol/L Chloride 94 L (98-107) mmol/L BUN 7 L (9-20) mg/dL Creatinine 0.63 L (0.66-1.25) mg/dL CT scan - chest: report reviewed Assessment and Plan (1) Lung mass Narrative/Plan: Presentation is concerning for malignancy, was discussed with the patient as well as his niece who was at the bedside. Patient's guardian was also informed via telephone of our discussion. Patient is status post bronchoscopy and biopsy with transbronchial biopsy by Dr. García, pathology is pending. CT of the head has been ordered to evaluate for possible metastatic disease. PET scan will be planned in the outpatient setting for next Monday for initial staging. Patient will follow up with Dr. Sainz the following week for results and plan of care. Caregivers aware of plan of care. Status: Acute (2) Back pain of thoracolumbar region Narrative/Plan: On computed tomography scan there is discussion of a T6 possible compression fracture, could possibly be an area of malignancy. Patient currently is not experiencing any neurological symptoms. Patient's pain medications are being adjusted for pain control. Status: Acute (3) Nausea Narrative/Plan: Could possibly be related pain, pain medications are being adjusted. Patient has been provided with some nutritional supplements. Status: Acute Plan: Once patient's pain and nausea are controlled patient is okay from a hematology/ oncology standpoint to be discharged home. Patient's caregivers are aware of the plan of care.
--- NOTE | 2016-12-09 19:12 | CT ---
EXAMINATION TYPE: CT brain w con DATE OF EXAM: 12/09/2016 COMPARISON: NONE HISTORY: History of skin cancer per patient CT DLP: 1236 mGycm Automated exposure control for dose reduction was used. CONTRAST: CT scan of the head is performed with IV Contrast, patient injected with 100 mL of Omnipaque 300. FINDINGS: Ventricles have normal size. There is no mass effect nor midline shift. There is no sign of intracran ial hemorrhage. There is no pathologic enhancement. The calvarium is intact. There is minimal mucosal thickening in the ethmoid air cells. IMPRESSION: Negative CT scan of the brain. No evidence of metastatic disease. Minimal ethmoid sinusitis.
[2016-12-09] MEDS: HYDROmorphone 1 MG/ML 1 ML SYRINGE IM PRN ×2 (19:44→22:37)
[2016-12-09] MEDS: DOCUSATE 100 MG CAP PO SCH (19:45)
[2016-12-09] MEDS: ENOXAPARIN 80 MG/0.8 ML SYRINGE SQ SCH (19:47)
[2016-12-09] MEDS: LACTATED RINGERS 1,000 ML IV SCH (19:48)
--- NOTE | 2016-12-09 21:27 | P.PN ---
<Valerie Whaley - Last Filed: 12/09/16 21:01> Progress Note - Text DATE OF SERVICE: 12/09/2016 PRESENTING COMPLAINT: Shortness of breath INTERVAL HISTORY: 66-year-old patient who had shortness of breath cough wheezing with sputum production. Computed tomography scan of the lung showed a mass with some compression of pulmonary artery. 12/09/2016: Patient lying in bed appears comfortable. Returned from his bronchoscopy, diet initiated. States his back pain is better today, breathing is okay. Ambulatory in the room. Appetite low. REVIEW OF SYSTEMS: Done for constitutional ,cardiovascular, GI, pulmonary with relevant findings as above. CURRENT MEDICATIONS Pulmicort, Lovenox, Prozac, Dilaudid, nicotine patch. PHYSICAL EXAM VITAL SIGNS: Temperature 98.0, pulse 81, respiratory rate 20, blood pressure 147 or 65, oxygen saturation 92% on 2 L GENERAL APPEARANCE: Lying in bed, appears comfortable EYES: Pupils equal. Conjunctiva normal. NECK: JVD not raised. Mass not palpable. RESPIRATORY: Respiratory effort normal. Lungs coarse breath sounds and expiratory wheezing noted. CARDIOVASCULAR: First and second sounds normal. No edema. ABDOMEN: Soft. Liver and spleen not palpable. No tenderness. No mass palpable. PSYCHIATRY: Alert and oriented x3. Mood and affect calm and cooperative. INVESTIGATIONS: Hemoglobin 11.9, INR 1.0, sodium 126, potassium 4.4, BUN 7, creatinine 0.63 Bronchial washings cultures in process CHEST x-ray: Right lower lobe atelectasis, no left lung pneumothorax postbiopsy. ASSESSMENT: -Extensive lung mass with some compression of the left pulmonary artery strongly suspicious of malignancy in a smoker. -Severe emphysema in a current smoker -Chronic nicotine dependence patient active symptoms smoker -Severe hyponatremia suspect SIADH with lung cancer, improving -Acute T6 compression fracture suspect metastatic disease -Suspect metastatic disease to the left adrenal gland -Chronic lactose intolerance -Schizophrenia PLAN: Continue nebulized bronchodilators and steroids. Await culture results. Oncology on consult and CT scan PET scan are ordered, with a PET scan to be done on next Monday for initial staging. We'll continue pain medications, heating pad to control pain related to compression fracture. Continue IV fluids to help with hyponatremia. We'll continue to follow closely. FLASH DEVELOPER statement: Patient was seen and examined by nurse practitioner Valerie Whaley and all elements of the case discussed with attending Dr. Tolbert <Shay Tolbert - Last Filed: 12/10/16 13:52> Progress Note - Text Attending note. Date of service-12/09/2016 This patient was seen and examined by me . I reviewed the note of my nurse practitioner, Ms. Whaley. Discussed with her, additional findings as below. Patient underwent bronchoscopy and biopsy today. Small amount of cough with the danger of bloody sputum. Still having back pain. On examination: Uncomfortable. Lungs-increased rate, decreased breath sounds and wheezing Investigations: Computed tomography scan of the brain negative. White count 10.2, sodium 126 Assessment and plan: Lung mass followed by bronchoscopy and biopsy Severe emphysema, slow to respond Hyponatremia likely SIADH Await Pap smear results. Continue with bronchodilators. Pain control. Fluid restriction to continue.
[2016-12-09 21:51] VITALS: RESP 16
[2016-12-10] MEDS: HYDROmorphone 1 MG/ML 1 ML SYRINGE IM PRN ×5 (02:45→21:55)
[2016-12-10] MEDS: SODIUM CHLORIDE 0.9% 1,000 ML IV SCH ×2 (04:50→23:46)
[2016-12-10 06:44] LABS: Basophils % (A) 0 %; CH 30.5; CHCM 34.3; Eosinophils # (A) 0.1 k/uL (0-0.7); Eosinophils % (A) 0 %; HCT 35.2 % (39.0-53.0); HDW 2.26; HGB 11.7 gm/dL (13.0-17.5); Luc # (Auto) 0.27; Luc % (Auto) 2; Lymphocytes # (A) 1.3 k/uL (1.0-4.8); Lymphocytes % (A) 10 %; MCH 29.7 pg (25.0-35.0); MCHC 33.2 g/dL (31.0-37.0); MCV 89.4 fL (80.0-100.0); Mean Platelet Volume 6.5; Monocytes # (A) 1.1 k/uL (0-1.0); Monocytes % (A) 9 %; Neutrophils # (A) 9.8 k/uL (1.3-7.7); Neutrophils % (A) 78 %; RBC 3.94 m/uL (4.30-5.90); RDW 13.2 % (11.5-15.5); WBC 12.5 k/uL (3.8-10.6); WBC (Perox) 12.89
[2016-12-10 06:59] LABS: Anion Gap 8 mmol/L; Blood Urea Nitrogen 6 mg/dL (9-20); Calcium 8.8 mg/dL (8.4-10.2); Carbon Dioxide 24 mmol/L (22-30); Chloride 94 mmol/L (98-107); Glucose 98 mg/dL (74-99); Non-African American GFR(MDRD) >60 (>60 ml/min/1.73 sqM); Potassium 4.1 mmol/L (3.5-5.1); Sodium 126 mmol/L (137-145)
[2016-12-10] MEDS: BUDESONIDE 0.5 MG/2 ML NEBU INHALATION SCH ×2 (08:09→20:38)
[2016-12-10] MEDS: IPRATROPIUM-ALBUTEROL 3 ML NEB INHALATION SCH ×2 (08:09→20:38)
[2016-12-10] MEDS: DOCUSATE 100 MG CAP PO SCH ×2 (09:32→19:53)
[2016-12-10] MEDS: FLUoxetine HCL 20 MG CAP PO SCH (09:32)
[2016-12-10] MEDS: NICOTINE 21MG/24HR PATCH TRANSDERM SCH (09:33)
[2016-12-10] MEDS: ENOXAPARIN 80 MG/0.8 ML SYRINGE SQ SCH ×2 (09:33→19:53)
[2016-12-10] MEDS: DICLOFENAC SODIUM GEL 100 GM TUBE TOPICAL SCH ×3 (15:05→19:53)
[2016-12-10] MEDS: SODIUM CHLORIDE TAB 1 GM TAB PO SCH ×3 (15:05→21:56)
[2016-12-10] MEDS: FUROSEMIDE 20 MG TAB PO SCH (15:05)
[2016-12-10 16:44] VITALS: TEMP 98.1
--- NOTE | 2016-12-10 17:11 | P.PN ---
Progress Note - Text DATE OF SERVICE: 12/10/2016 PRESENTING COMPLAINT: Shortness of breath INTERVAL HISTORY: 66-year-old patient who had shortness of breath cough wheezing with sputum production. Computed tomography scan of the lung showed a mass with some compression of pulmonary artery. 12/09/2016: Patient lying in bed appears comfortable. Returned from his bronchoscopy, diet initiated. States his back pain is better today, breathing is okay. Ambulatory in the room. Appetite low. 12/10/2016: Patient lying in bed appears comfortable, states he's been up walking around quite a bit on the unit, feels good. Appetite is good, able to eat most of his lunch. Last BM was today. REVIEW OF SYSTEMS: Done for constitutional ,cardiovascular, GI, pulmonary with relevant findings as above. CURRENT MEDICATIONS Pulmicort, Lovenox, Prozac, Dilaudid, nicotine patch. Diclofenac gel PHYSICAL EXAM VITAL SIGNS: Temperature 98.5, pulse 76, respiratory rate 16, blood pressure 135/65, oxygen saturation 92% on room air GENERAL APPEARANCE: Lying in bed, appears comfortable EYES: Pupils equal. Conjunctiva normal. NECK: JVD not raised. Mass not palpable. RESPIRATORY: Respiratory effort normal. Lungs coarse breath sounds and expiratory wheezing noted. CARDIOVASCULAR: First and second sounds normal. No edema. ABDOMEN: Soft. Liver and spleen not palpable. No tenderness. No mass palpable. PSYCHIATRY: Alert and oriented x3. Mood and affect calm and cooperative. INVESTIGATIONS: White blood cell count 12.5, hemoglobin 11.7, sodium 126, potassium 4.1, BUN 6, creatinine 0.60. Bronchial washings cultures in process Brain CT: Negative for metastatic disease. ASSESSMENT: -Extensive lung mass with some compression of the left pulmonary artery strongly suspicious of malignancy in a smoker status post bronchoscopy with biopsy. -Severe emphysema in a current smoker, slow to respond -Chronic nicotine dependence patient active symptoms smoker -Severe hyponatremia likely SIADH with lung cancer, slow to respond -Acute T6 compression fracture suspect metastatic disease -Suspect metastatic disease to the left adrenal gland -Chronic lactose intolerance -Schizophrenia PLAN: Continue nebulized bronchodilators and steroids. Await culture results. Oncology on consult and CT scan PET scan are ordered, with a PET scan to be done on next Monday for initial staging. We'll continue pain medications, heating pad to control pain related to compression fracture. Continue IV fluids /fluid restriction to help with hyponatremia. We'll continue to follow closely. BODY MECHANIC statement: Patient was seen and examined by nurse practitioner Valerie Whaley and all elements of the case discussed with attending Dr. Tolbert
--- NOTE | 2016-12-10 20:39 | PN ---
This is a 66-year-old gentleman who underwent biopsy by Dr. García yesterday. The patient on CT scan was apparently found to have a mass and a ( ) mass measuring approximately 5.1 x 8 x 7.2 cm suspicious for malignancy. The mass was in the left suprahilar region. The patient is doing well today. No major complaints. He can follow-up with Dr. García after discharge. He was admitted to Dr. Sellers service. His primary care physician is Dr. Marie. The patient states that God took his lesion away. He is a little goofy today. The patient is stable not requiring any oxygen therapy. No pain. No cough. No phlegm production. Current vital signs include temperature 98.5. Heart rate 76, respiratory rate 16. Blood pressure 135/65. Mean 88. Room air saturation 92%. Appears in no acute distress. HEENT examination is grossly unremarkable. Neck is supple. Full range of motion. No adenopathy or thyromegaly. Cardiovascular examination reveals regular rhythm and rate. Lungs reveal clear breath sounds. Abdomen is soft. Bowel sounds are heard. Extremities are intact. Skin without rash. Labs are reviewed. White count 12.5. Hemoglobin 11.7. Hematocrit 35.2. Platelet count 421,000. Sodium 126, and potassium 4.1, chloride 94, CO2 24. BUN and creatinine were 6 and 0.60. Urine is noted. Biopsies are pending. ASSESSMENT: 1. Large left suprahilar mass, likely consistent with lung cancer. 2. Euvolemic Hyponatremia, rule out SIADH. 3. History of underlying chronic obstructive pulmonary disease with chronic obstructive pulmonary disease exacerbation, stable. 4. Right mediastinal lymphadenopathy on CT angiogram. 5. Compression fracture, T6. 6. Prominence of left adrenal gland, suspect METS. 7. History of melanoma. 8. Chronic nicotine dependence. PLAN: The patient underwent bronchoscopy. We will await biopsy results. Additional recommendations and suggestions are forthcoming. Prognosis guarded. We will see the patient prn. No additional recommendations are made. The patient has been seen by Dr. Tolbert. Also, oncology and the pulmonary service. [facility]
[2016-12-10] MEDS: LACTATED RINGERS 1,000 ML IV SCH (23:46)
[2016-12-11] MEDS: HYDROmorphone 1 MG/ML 1 ML SYRINGE IM PRN ×2 (01:29→04:33)
[2016-12-11] MEDS: BUDESONIDE 0.5 MG/2 ML NEBU INHALATION SCH (07:25)
[2016-12-11] MEDS: IPRATROPIUM-ALBUTEROL 3 ML NEB INHALATION SCH ×2 (07:25→11:24)
[2016-12-11 07:37] VITALS: BP 175/86; PULSE 78
[2016-12-11] MEDS: DICLOFENAC SODIUM GEL 100 GM TUBE TOPICAL SCH (08:12)
[2016-12-11] MEDS: FLUoxetine HCL 20 MG CAP PO SCH (08:13)
[2016-12-11] MEDS: FUROSEMIDE 20 MG TAB PO SCH (08:13)
[2016-12-11] MEDS: DOCUSATE 100 MG CAP PO SCH (08:13)
[2016-12-11] MEDS: NICOTINE 21MG/24HR PATCH TRANSDERM SCH (08:13)
[2016-12-11] MEDS: SODIUM CHLORIDE TAB 1 GM TAB PO SCH (08:14)
[2016-12-11] MEDS: SODIUM CHLORIDE 0.9% 1,000 ML IV SCH (08:14)
[2016-12-11] MEDS: ENOXAPARIN 80 MG/0.8 ML SYRINGE SQ SCH (08:14)
[2016-12-11 08:30] LABS: Anion Gap 7 mmol/L; Blood Urea Nitrogen 4 mg/dL (9-20); Calcium 8.6 mg/dL (8.4-10.2); Carbon Dioxide 27 mmol/L (22-30); Chloride 91 mmol/L (98-107); Glucose 94 mg/dL (74-99); Non-African American GFR(MDRD) >60 (>60 ml/min/1.73 sqM); Sodium 125 mmol/L (137-145)
[2016-12-12 09:04] LABS: Mis test requested (Non-blood) PNEJ
--- NOTE | 2016-12-13 16:54 | DS ---
DATE OF ADMISSION: 12/08/2016 DATE OF DISCHARGE: 12/10/2016 FINAL DIAGNOSES: 1. Lung mass, strongly suspicious for malignancy, with some compression of the left pulmonary artery. 2. Acute severe emphysema exacerbation in a current smoker. 3. Chronic nicotine dependence. Patient is an active cigarette smoker. 4. Severe hyponatremia; suspected SIADH. 5. Acute T6 compression fracture; suspect metastatic disease, present on admission. 6. Suspect metastatic disease to the left adrenal gland. 7. Chronic lactose intolerance. 8. Schizophrenia. HOSPITAL COURSE: This patient, who is a long-standing smoker, presented with severe low back pain and shortness of breath. He was found to have a T6 compression fracture. CT scan of the chest showed a mediastinal mass in the left suprahilar region. It was narrowing the left main pulmonary artery. There were significant emphysematous changes. The patient did undergo bronchoscopy with biopsy by Dr. Prasanna García, results of which are pending. Patient was seen by Dr. Mcghee, covering for him today, and I talked to him on the phone. He okayed the patient to be discharged. Patient's back pain is much better controlled. Patient was counseled against smoking. On examination, lungs reveal decreased breath sounds. PSYCHIATRIC: Alert and oriented x3. Patient's sodium came up from 121 to 126. More instructions are being given. CT scan of the brain was negative. DISCHARGE MEDICATIONS: 1. Prozac 40 mg a day. 2. Prolixin 50 mg IM every 14 days. 3. Ventolin HFA 1 to 2 puffs q.6 p.r.n. 4. Pulmicort nebulizer discontinued. 5. Lasix 20 mg p.o. daily for 10 days. 6. Delong 5 one tablet q.6 p.r.n. 7. Atrovent HFA 2 puffs q.i.d. 8. Lidoderm 5% patch topically 14. 9. Naproxen 250 mg p.o. b.i.d. 10. Nicotine 21 mg patch. 11. Sodium chloride 2 grams p.o. q.i.d.; 120 tablets. Fluid restriction: 1500 mL per day. Follow up with Dr. Sainz in 2 weeks. Follow up with Dr. Marie in 3 days. Follow up with Dr. Sandy on 12/13/16. Follow up with Dr. García in one week. PET scan will be scheduled as an outpatient. Patient has a legal guardian, his brother. Phone call was made to him by the nurse. Discussion and discharge planning more than 35 minutes. SINDHU
== END 2016-12-11 12:57 | disposition home or self-care (01) | DRG 167 ==
LOC: EEVIPCON 20:52 → EC 20:52 → 5ONC 12-08 01:56
PROVIDERS: ADMIT Hospitalist; ATTEND Hospitalist
PROC: 0B9G8ZX Drainage of Left Upper Lung Lobe, Via Natural or Artificial Opening Endoscopic, Diagnostic (ICD-10-PCS; 2016-12-09)
PROC: 0BBG8ZX Excision of Left Upper Lung Lobe, Via Natural or Artificial Opening Endoscopic, Diagnostic (ICD-10-PCS; principal; 2016-12-09 08:30)
PROC: 0B9J8ZX Drainage of Left Lower Lung Lobe, Via Natural or Artificial Opening Endoscopic, Diagnostic (ICD-10-PCS; 2016-12-09 08:30)
DX: C34.92 Malignant neoplasm of unspecified part of left bronchus or lung (principal); J44.1 Chronic obstructive pulmonary disease with (acute) exacerbation; I28.8 Other diseases of pulmonary vessels; C79.72 Secondary malignant neoplasm of left adrenal gland; C79.51 Secondary malignant neoplasm of bone; E22.2 Syndrome of inappropriate secretion of antidiuretic hormone; M84.58XA Pathological fracture in neoplastic disease, other specified site, initial encounter for fracture; G89.3 Neoplasm related pain (acute) (chronic); R59.0 Localized enlarged lymph nodes; I77.1 Stricture of artery; R53.83 Other fatigue; R63.4 Abnormal weight loss; F20.9 Schizophrenia, unspecified; F12.90 Cannabis use, unspecified, uncomplicated; F17.210 Nicotine dependence, cigarettes, uncomplicated; R11.0 Nausea; R39.198 Other difficulties with micturition; E73.9 Lactose intolerance, unspecified; Z91.19 Patient's noncompliance with other medical treatment and regimen; Z79.899 Other long term (current) drug therapy; Z90.49 Acquired absence of other specified parts of digestive tract; Z85.820 Personal history of malignant melanoma of skin; Z71.6 Tobacco abuse counseling
CPT/HCPCS: 31624; 31628; 36415; 51798; 70460; 71010; 71020; 71275; 80048; 80053; 81003; 82150; 82550; 82553; 83690; 83735; 83880; 83930; 84484; 85025; 85379; 85610; 85730; 87070; 87102; 87116; 87205; 87206; 87252; 87299; 87496; 87498; 87502; 87529; 87541; 87798; 88108; 88305; 88341; 88342; 93005; 96361; 96374; 96375; 96376; 99285

== ENCOUNTER → 2016-12-17 | Outpatient (CLI) | payer MEDICARE, OTHER ==
--- NOTE | 2016-12-19 19:50 | PE ---
EXAMINATION TYPE: PET CT fusion skull to thigh DATE OF EXAM: 12/17/2016 CLINICAL HISTORY: 66-year-old male initial staging lung cancer. Recent lung biopsy. TECHNIQUE: Following the intravenous administration of 11.37 mCi of F-18 FDG, whole body images are performed from the skull base to the midthigh. Images are reviewed on the computer in the coronal, axial, and sagittal planes. Reconstructed rotating images are created on independent workstation and reviewed on the computer. A localization and attenuation correction CT is performed in conjunction with the PET scan. Glucose level: 112 mg/dL CTDI: 2.75 mGY DLP: 245.06 mGy-cm COMPARISON: CT chest in 06/27/2016 FINDINGS: PET: There is some focal uptake along the anterior floor of the mouth suspected to be muscular activity. There is medialization of the left vocal fold. A small focus of moderate FDG uptake located in the pr evertebral space behind the larynx probably represents some muscular or esophageal uptake. There is a very large AP window mass which partially encases the left main stem bronchus and encases the left upper lobe bronchus and left main pulmonary artery. This measures up to 6.5 x 8.6 cm extendi ng into the mediastinal fat. Maximal SUV 7.8. There is patchy groundglass and nodular infiltrate within the left upper lobe distal to the mass whic h shows no discrete FDG uptake and probably reflects a postobstructive infectious/inflammatory etiolo gy. Mild suspicious focal uptake within a nonenlarged right hilar lymph node, maximal SUV 2.9. Similar masslike enlargement of the right and left adrenal glands measuring 2.1 x 3.5 (max SUV 4.3) a nd 3.1 x 2.1 cm (max SUV 3.5), respectively. There is a 3.0 cm lesion within the inferior right hepatic lobe that shows moderate suspicious FDG up take, maximum SUV 4.0. Some variable FDG uptake in the ileocecal region and cecum likely physiologic. There is an elongated abnormal soft tissue density measuring 3.7 x 1.6 cm in the right paramedian low er back subcutaneous fat, axial image 184 that shows only mild FDG uptake, max SUV 2.2 probably some inflammation or subcutaneous bruising related to an injury. A soft tissue deposit is possible but con sidered less likely given the degree of mild uptake. Nonspecific hyperdensity along the left lateral aspect of the prostate gland shows no discrete FDG up take and is of questionable clinical significance. Scattered foci of FDG uptake are present in the osseous structures. For example, within the T2 and T4 vertebral bodies (Max SUV 2.9), within the collapsed T6 vertebral body (Max SUV 4.5), within the gely tral L2 vertebral body (max SUV 4.2), medial right iliac bone (Max SUV 4.6), posterior right sacral a la (Max SUV 3.3), anterior left iliac crest (max SUV 3.8), superior right acetabulum, and foci within the left proximal femur subtrochanteric region (Max SUV 2.7). Abnormal uptake within the right lateral sixth and right anterolateral seventh ribs as well (Max SUV 2.6). ATTENUATION CORRECTION CT: The visualized paranasal sinuses and mastoid air cells are clear. Calcifications in the region of th e right palatine tonsils suggest sequela of prior infection. No cervical lymphadenopathy seen. Heart is normal size with small to moderate-sized anterior basilar pericardial effusion measuring 1.8 cm. Bullous emphysema. No pleural effusion. Ascending aorta is ectatic at 3.7 cm. No dilated small bowel, free fluid, or free air. No mesenteric or retroperitoneal lymphadenopathy. Bladder is nondistended. Prostate gland measures 4.8 cm wide. No abnormal fluid collection in the pel vis or pelvic lymphadenopathy. IMPRESSION: 1. Large hypermetabolic left hilar/AP window mass measuring up to 8.6 cm as described on prior CT [address]. Findings compatible with biopsy-proven neoplasm. Patchy groundglass and nodular infiltrate within the left upper lobe shows no discrete FDG uptake and is suspected to represent a postobstructive inf ectious/inflammatory etiology. 2. However, there is evidence for metastatic disease with suspicious uptake in a right hilar lymph no de and osseous metastatic disease scattered throughout the thoracic and lumbar spine (the previously described T6 vertebral compression deformity likely represents a pathologic fracture), right sixth an d seventh ribs, bilateral iliac bones, right sacral ala, and proximal left femur. 3. More indeterminate (due to the lower grade of metabolic activity) but still suspicious uptake invo lves bilateral masslike enlargement of the adrenal glands (measuring up to 3.5 cm), a 3 cm inferior r ight liver lobe lesion, and possible subcutaneous soft tissue deposit along the right paramedian lowe r back. 4. Note that medialization of the left vocal fold suggests compromise of the left recurrent laryngeal nerve.
== END | disposition home or self-care (01) ==
LOC: RADPETMAIN 12:06
PROVIDERS: ATTEND Internal Medicine Hematology & Oncology
DX: C79.51 Secondary malignant neoplasm of bone (principal); C34.90 Malignant neoplasm of unspecified part of unspecified bronchus or lung
CPT/HCPCS: 78815; A9552